=== PATIENT | female | born 1955 | race Caucasian/White ===

== ENCOUNTER 2016-10-10 05:54 | Day surgery (SDC) | payer OTHER ==
--- NOTE | 2016-10-07 18:23 | SSS ---
CHIEF COMPLAINT: Need for screening colonoscopy. HISTORY OF PRESENT ILLNESS: Ms. Latif is a 61 year-old female who presents to my office for colonoscopy. Her last colonoscopy was in 2006. At that time, she had no polyps. She did have a hyperplastic removed by colonoscopy in 2001. Risks and benefits were discussed. She was agreeable with proceeding. She denies any symptoms referable to her bowels, specifically no abdominal pain, blood in her stool or changes in her bowel habits. PAST MEDICAL HISTORY: 1. Hypertension. She had an echocardiogram in November of 2015 that showed an ejection fraction of 55% and mild mitral regurgitation. 2. History of constipation. 3. History of diverticulosis. 4. Osteoporosis. 5. Anxiety. 6. 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 7. Hyperlipidemia. 8. Allergic rhinitis. PAST SURGICAL HISTORY: 1. Total abdominal hysterectomy [place] [address] Vania Salas. 2. Multiple orthopedic surgeries to her right leg secondary to polio in 1959, 1962 and 1966. 3. Facelift by Dr. Jonathan Ho in 2011. 4. Colonoscopy in [address] Sarabjit Harvey. At that time a single transverse diverticula and a single transverse hyperplastic polyp were removed. Repeat colonoscopy in May of 2006 by the same physician showed no polyps and a transverse diverticula. CURRENT MEDICATIONS: ALLERGIES: NONE. FAMILY HISTORY: Father at 79 from a stroke. He also had hypertension. Mother has hypertension. She has 1 brother, Ronny, who is overweight and a sister, Karolyn, who had sarcoidosis. She has an aunt with diabetes. SOCIAL HISTORY: She graduated from [employer]. 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 She is with no children. She quit smoking in 1997 having smoked 1/2 pack per day for 21 years. REVIEW OF SYSTEMS: Negative except as per History of Present Illness. PHYSICAL EXAMINATION: VITAL SIGNS: Blood pressure 160/80, height 5 feet, 118, pulse 70. GENERAL: She is awake and alert, and in no acute distress. HEENT: Unremarkable. NECK: Supple. CHEST: Lungs are clear. CARDIOVASCULAR: Regular rate and rhythm. ABDOMEN: Benign. EXTREMITIES: Without edema. RECTAL: Exam is deferred until time of colonoscopy. ASSESSMENT: 1. Remote history of colon polyp. PLAN: Screening colonoscopy on 10/10/16. [facility][id number] [facility]
[2016-10-10] MEDS ORDERED: LACTATED RINGERS 1,000 ML ONE (06:22)
--- NOTE | 2016-10-10 09:55 | OP ---
DATE OF PROCEDURE: 10/10/16 PREOPERATIVE DIAGNOSIS: 1. Screening colonoscopy. 2. Remote history of colonic polyps. POSTOPERATIVE DIAGNOSIS: 1. 0.25 by 0.25 cm sigmoid colon polyp, biopsied to obliteration. 2. 0.25 by 0.25 cm proximal transverse colon polyp, biopsied to obliteration. 3. 0.25 by 0.25 cm distal transverse colon polyp, biopsied to obliteration. 4. Few left sided diverticula. 5. Moderate melanosis coli. PROCEDURE: 1. Colonoscopy. SURGEON: Jaime Dick MD. ESTIMATED BLOOD LOSS: Less than 1 mL. COMPLICATIONS: No immediate complications. ANESTHESIA: Propofol 350 mg administered intravenously using monitored anesthesia care with Danny Mix CRNA. TECHNIQUE: After informed consent was obtained from the patient, the patient was taken to the Endoscopy Suite and placed in the left lateral decubitus position. Incremental doses of propofol were given until adequate conscious sedation was obtained. Vital signs were monitored throughout the procedure. Supplemental oxygen was administered throughout the procedure. Digital rectal examination was performed, which was unremarkable. The colonoscope was then advanced into the patient's rectum and up through the sigmoid, descending, transverse and ascending colon to the level of the cecum. Some looping was experienced in the sigmoid. The usual cecal landmarks were noted. Overall, her bowel prep was quite good. There were a few areas of liquid stool where it had to be suctioned out. Upon insertion of the scope in the sigmoid, a small 0.25 by 0.25 cm polyp was noted and biopsied to obliteration. Once the cecum was subsequently reached, the terminal ileum was entered and photographed. The colonoscope was then slowly withdrawn, taking great care to try to visualize all sevilla of the colon in 360 degree fashion. Mild to moderate diffuse melanosis coli was noted throughout the colon. Two additional polyps were noted in the transverse colon and biopsied and submitted in separate containers. There were very few left sided diverticula in the sigmoid region, perhaps numbering two or three. In the rectum, the colonoscope was retroflexed upon itself. No significant abnormalities were noted here. The colonoscope was then unretroflexed and air was suctioned out of the patient's rectum. The patient tolerated the procedure well and was taken back to the recovery area in good condition. PLAN: Followup in my office in 7 to 10 days to review the pathology report. We will consider repeat colonoscopy based on the pathology, but will be unlikely to be prior to 3 years. [facility][id number] [facility]
[2016-10-10] MEDS ORDERED: PROPOFOL 200 MG/20 ML VIAL IV ONE (12:00)
[2016-10-10 13:46] VITALS: TEMP 97
[2016-10-10 15:17] VITALS: BP 104/64; O2SAT 96
== END 2016-10-10 09:00 | disposition home or self-care (01) ==
LOC: AMB 05:54
PROVIDERS: ATTEND Family Medicine
DX: Z12.11 Encounter for screening for malignant neoplasm of colon (principal); D12.3 Benign neoplasm of transverse colon; D12.5 Benign neoplasm of sigmoid colon; K57.30 Diverticulosis of large intestine without perforation or abscess without bleeding; K63.89 Other specified diseases of intestine; I10 Essential (primary) hypertension; F41.8 Other specified anxiety disorders; M81.0 Age-related osteoporosis without current pathological fracture; E78.5 Hyperlipidemia, unspecified; Z86.010 Personal history of colon polyps; Z87.891 Personal history of nicotine dependence; Z79.899 Other long term (current) drug therapy
CPT/HCPCS: 00810; 45380; J3490; J7120

== ENCOUNTER → 2017-01-09 | Outpatient (CLI) | payer OTHER ==
--- NOTE | 2017-01-11 14:48 | MAM ---
EXAM DESCRIPTION: Screening Mammogram,Bilateral CLINICAL HISTORY: 61 years Female SCREENING . No complaints. No family history of breast cancer.. Postmenopausal. Taking HRT more than 5 years ago. COMPARISON: 2-D digital screening bilateral study, 01/06/2016.. No prior reports available. Reports from prior examinations also reviewed. Report from prior examination also reviewed. TECHNIQUE: Bilateral CC and MLO projection full-field images, 2-D digital screening mammographic technique. CAD was utilized. FINDINGS: The breast parenchymal density pattern is: Heterogeneously dense breast tissue, which may obscure small masses. No skin thickening or nipple retraction bilateral solitary microcalcifications. Stable focal asymmetry in the central left breast. This could represent intramammary lymph node. No focal, stellate mass or density, new focal asymmetry , and no suspicious microcalcifications bilaterally. Stable mammograms compared to the prior study, taking into account differences in mammographic technique. IMPRESSION: BI-RADS CATEGORY: 2 - BENIGN FINDINGS. FOLLOW UP: Routine digital bilateral screening, one year interval from January 2017. Written communication explaining the IMPRESSION and follow-up, will be mailed to the patient and referring health care provider. According to the [employer], yearly mammograms are recommended starting at age 40 and continuing as long as a woman is in good health. Any breast change noted on a breast self-exam should be reported promptly to the patient's healthcare provider. Breast MRI is recommended for women with an approximately 20-25% or greater lifetime risk of breast cancer, including women with a strong family history of breast or ovarian cancer and women who have been treated for Hodgkin's disease. A negative mammographic report should not delay tissue diagnosis in patients with significant clinical history or physical findings. Extremely dense breast tissue limits the sensitivity of digital mammography. Electronically signed by: Chris Driscoll MD 01/11/2017 2:47 PM [facility]
== END ==
LOC: MAMMO 14:19
PROVIDERS: ATTEND Family Medicine
DX: Z12.31 Encounter for screening mammogram for malignant neoplasm of breast (principal)

== ENCOUNTER → 2018-01-29 | Outpatient (CLI) | payer OTHER ==
--- NOTE | 2018-01-30 09:38 | MAM ---
EXAM DESCRIPTION: 3D Screening BILATERAL : Digital Mammography. CLINICAL HISTORY: 62 years Female SCREENING . No complaints. No personal or family history of breast cancer. No childbirth. Postmenopausal. HRT 5 or more years ago.. Lifetime risk of developing breast cancer (Tyrer-Cuzick model)(%): 7.2. COMPARISON: Bilateral screening digital breast tomosynthesis 01/09/2017.. TECHNIQUE: Bilateral CC and MLO projection full-field images, digital tomosynthesis mammographic technique. Bilateral digital 2-D full-field MLO images. CAD not available for tomosynthesis or 2-D images. FINDINGS: The breast parenchymal density pattern is: Heterogeneously dense breast tissue, which may obscure small masses. No skin thickening or nipple retraction. Stable focal asymmetry or mass density in the central left breast which may represent an intramammary lymph node, based on margins and density. Stable microcalcifications in the superior right breast. No new focal, stellate mass or density, focal asymmetry , and no suspicious microcalcifications bilaterally. Stable mammograms compared to prior study. Taking into account, differences in mammographic technique. IMPRESSION: Benign exam. BIRAD CATEGORY: 2 BENIGN FINDINGS. RECOMMENDATIONS: FOLLOW UP: Routine digital bilateral mammographic screening, one year interval from January 2018. Written communication explaining the IMPRESSION and follow-up, will be mailed to the patient and referring health care provider. According to the [employer], yearly mammograms are recommended starting at age 40 and continuing as long as a woman is in good health. Any breast change noted on a breast self-exam should be reported promptly to the patient's healthcare provider. Breast MRI is recommended for women with an approximately 20-25% or greater lifetime risk of breast cancer, including women with a strong family history of breast or ovarian cancer and women who have been treated for Hodgkin's disease. A negative mammographic report should not delay tissue diagnosis in patients with significant clinical history or physical findings. Extremely dense breast tissue limits the sensitivity of digital mammography. Electronically signed by: Chris Driscoll MD 01/30/2018 9:36 AM [employer]
== END ==
LOC: MAMMO 11:46
PROVIDERS: ATTEND Family Medicine
DX: Z12.31 Encounter for screening mammogram for malignant neoplasm of breast (principal)

== ENCOUNTER → 2018-09-24 | Outpatient (CLI) | payer MEDICARE, OTHER | LOC: GMAL 10:38 | PROVIDERS: ATTEND Family Medicine | DX: D51.3 Other dietary vitamin B12 deficiency anemia (principal); R53.83 Other fatigue; E55.9 Vitamin D deficiency, unspecified; E78.2 Mixed hyperlipidemia; I10 Essential (primary) hypertension; Z79.899 Other long term (current) drug therapy ==

== ENCOUNTER → 2019-03-22 | Outpatient (CLI) | payer MEDICARE, OTHER ==
--- NOTE | 2019-03-22 16:38 | MAM ---
EXAM DESCRIPTION: 3D Screening BILATERAL : Digital Mammography. CLINICAL HISTORY: 63 years Female ANNUAL SCREENING . No complaints. No personal or family history of breast cancer. Menarche age 9. Childbirth none. Menopause age 45. HRT 5 or more years ago.. Lifetime risk of developing breast cancer (Tyrer-Cuzick model)(%): 7.6. COMPARISON: Bilateral screening digital breast tomosynthesis January 2018 and 2-D digital screening bilateral mammography January 2017. TECHNIQUE: Bilateral CC and MLO projection full-field images, digital tomosynthesis mammographic technique. Bilateral digital 2-D full-field MLO images. CAD available for 2-D images. FINDINGS: The breast parenchymal density pattern is: Heterogeneously dense breast tissue, which may obscure small masses. No skin thickening or nipple retraction. No new focal, stellate mass or density, focal asymmetry , and no suspicious microcalcifications bilaterally. Stable mammograms compared to prior study. Taking into account, differences in mammographic technique. IMPRESSION: No suspicious or significant imaging findings. BI-RADS CATEGORY: 1 - NEGATIVE FOLLOW UP: Routine digital bilateral screening, one year interval from March 2019. Written communication explaining the findings and follow-up, will be mailed to the patient and referring health care provider. According to the [employer], yearly mammograms are recommended starting at age 40 and continuing as long as a woman is in good health. Any breast change noted on a breast self-exam should be reported promptly to the patient's healthcare provider. Breast MRI is recommended for women with an approximately 20-25% or greater lifetime risk of breast cancer, including women with a strong family history of breast or ovarian cancer and women who have been treated for Hodgkin's disease. A negative mammographic report should not delay tissue diagnosis in patients with significant clinical history or physical findings. Extremely dense breast tissue limits the sensitivity of digital mammography. Electronically signed by: Chris Driscoll MD 03/22/2019 4:36 PM [employer]
== END ==
LOC: MAMMO 12:49
PROVIDERS: ATTEND Family Medicine
DX: Z12.31 Encounter for screening mammogram for malignant neoplasm of breast (principal)

== ENCOUNTER → 2020-01-20 | Outpatient (CLI) | payer MEDICARE, OTHER | LOC: GMAL 15:27 | PROVIDERS: ATTEND Family Medicine | DX: D51.3 Other dietary vitamin B12 deficiency anemia (principal); R53.83 Other fatigue; E55.9 Vitamin D deficiency, unspecified; E78.49 Other hyperlipidemia; I10 Essential (primary) hypertension ==